=== PATIENT | male | born 1975 | race Caucasian/White ===

== ENCOUNTER 2018-08-10 22:55 | Inpatient (IN) ==
[2018-08-11 00:03] LABS: BASO# 0.05 X1000 (0.0-0.2); BASO% 0.8 % (0.0-0.8); EOS# 0.08 X1000 (0.0-0.7); EOS% 1.2 % (0.0-10.0); HEMATOCRIT 48.4 % (42.0-52.0); HEMOGLOBIN 16.7 g/dL (14.0-18.0); LYMPH# 1.44 X1000 (1.2-3.4); LYMPH% 21.9 % (20.5-51.1); MCH 29.1 PG (27-31); MCHC 34.5 g/dL (33-37); MCV 84.5 FL (81-99); MONO# 0.52 X1000 (0.11-0.59); MONO% 7.9 % (1.7-9.3); MPV 11.1 FL (7.4-10.4); NEUT# 4.49 X1000 (1.4-6.5); NEUT% 68.2 % (42.2-75.2); PLT 245 X1000 (130-400); RBC 5.73 XMIL (4.7-6.1); RDW 12.7 % (11.5-14.5); WBC 6.58 X1000 (4.8-10.8)
[2018-08-11 00:22] LABS: AGAP 18; ALB/GLOB RATIO 1.7; ALBUMIN 4.8 g/dL (3.5-5.0); ALKALINE PHOSPHATASE 94 U/L (32-122); BUN 19 mg/dL (8-22); CALCIUM 9.5 mg/dL (8.8-10.2); CHLORIDE 105 mmol/L (98-107); COSMO 280; CREATININE 1.3 mg/dL (0.7-1.2); ESTIMATED GFR > 60; GLUCOSE 108 mg/dL (70-104); GOT 13 U/L (10-34); GPT 14 U/L (10-44); POTASSIUM 4.3 mmol/L (3.5-5.1); SODIUM 139 mmol/L (136-145); TCO2 16 mmol/L (25-35); TOTAL BILIRUBIN 1.08 mg/dL (0.20-1.00); TOTAL PROTEIN 7.7 g/dL (6.3-8.3)
--- NOTE | 2018-08-11 00:42 | PROVIDER DOCUMENTATION ---
This chart was entered by Tatyana Linn Scribe, acting as scribe for Vahe Jones MD. HPI-Chest Pain - General Chief Complaint: Chest Pain Stated Complaint: cp Time Seen by Provider: 08/10/18 23:13 Source: patient Allergies/Adverse Reactions: Patient Allergies Allergy/AdvReac Type Severity Reaction Status Date / Time No Known Allergies Allergy Verified 01/26/16 16:11 Home Medications: Home Medication List Medication Instructions Recorded Confirmed Last Taken Type Amoxicillin 500 mg PO TID #30 capsule 01/26/16 Unknown Rx Chlorhexidine Gluconate [Peridex] 473 ml MM BID #1 bottle 01/26/16 Unknown Rx Ibuprofen 800 mg PO TID #20 tablet 01/26/16 Unknown Rx Hydrocodone/Acetaminophen [Bellona 1 ea PO Q4-6H PRN PRN #10 tab 07/01/17 Unknown Rx 10-325 Tablet] Tamsulosin [Flomax] 0.4 mg PO DAILY #7 cap 07/01/17 Unknown Rx - History of Present Illness-CP Nature of Presenting Problem: 42 yom c/o cp w/nausea and sweating starting this afternoon. pt's took him to ems to be evaluated and [facility] brought him to er. pt has had previous neck sx and has neck probs so pt reports filing for disability soon. pt states pain radiates into both arms. pt is cold a clammy to touch. pt has hx of htn but no other medical problems. pt family hx father had 3xbypass at 55. pt denies drug use. Review of Systems - Adult - REVIEW OF SYSTEMS - ADULT Constitutional: reports: no symptoms reported, other (cold and clammy to touch). denies: chills, fever, fatique Eyes: reports: no symptoms reported Ears, Nose, Mouth & Throat: reports: no symptoms reported Cardiovascular: reports: see HPI, chest pain. denies: orthopnea, palpitations, syncope Respiratory: reports: no symptoms reported Gastrointestinal: reports: no symptoms reported Genitourinary: reports: no symptoms reported Musculoskeletal: reports: no symptoms reported Integumentary: reports: no symptoms reported Neurological: reports: no symptoms reported Psychiatric: reports: no symptoms reported Endocrine: reports: see HPI, excessive sweating Hematologic/Lymphatic: reports: no symptoms reported Allergic/Immunologic: reports: no symptoms reported All Other Systems: Reviewed and Negative Past History - Adult - PAST MEDICAL HISTORY-ADULT Review of Records: reports: Old Records Reviewed, Nursing Assessment Review, Medications Reviewed, Social history reviewed & non-contributory. Major Childhood Illnesses: reports: denies history Cardiovascular: reports: HTN Respiratory: reports: denies history Gastrointestinal: reports: GERD Obstetrical/Gynecological: reports: denies history Genitourinary: reports: kidney stones Musculoskeletal: reports: denies history Neurological: reports: denies history Endocrine/Immune: reports: denies history Other Conditions: reports: denies history - PRIOR SURGERIES/PROCEDURES Surgical/Procedure History: reports: back/neck (neck) - IMMUNIZATION STATUS Childhood Immunizations: See Nurse Assessment Flu Vaccine: See Nurse Assessment - FAMILY HISTORY Family History: reviewed, not pertinent - SOCIAL HISTORY Smoking: other (former) Substance Use: none/never Physical Exam-General - PHYSICAL EXAM-ADULT Initial Vital Signs Reviewed: Yes - CONSTITUTIONAL General Appearance: alert, mild distress, other (diaphoresis, cold, clammy). negative: slow to respond, obtunded, combative - EYES Eyes: PERRL/EOMI, pink conjunctivae - HEAD, EARS, NOSE, MOUTH & THROAT HENMT: normocephalic/atraumatic, moist mucous membranes, normal ENT inspection - NECK Neck: non-tender, full range of motion, supple, normal inspection - RESPIRATORY Respiratory: chest non-tender, lungs clear, normal breath sounds - CARDIOVASCULAR Cardiovascular: normal peripheral pulses, regular rate, rhythm, no edema. negative: extra beats, friction rub, irregularly irregular - GASTROINTESTINAL (ABDOMEN) Abdominal Exam: normal bowel sounds, non tender, soft - LYMPHATIC Lymphatic: no adenopathy - MUSCULOSKELETAL Back Exam: normal inspection, no CVA tenderness, no vertebral tenderness Extremity: normal range of motion, non-tender, normal inspection Peripheral Pulses: radial (R): 2+, radial (L): 2+ - SKIN Integumentary: normal color, normal turgor, diaphoresis. 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, grossly normal, no motor/sensory deficits - PSYCHIATRIC Psych/Mental Status: normal mood/affect, normal thought content, normal thought process, oriented x 3 Progress - PLAN OF CARE/RESULTS Progress/Plan/Lab Results: Vital Signs - 8 hr 08/10/18 23:13 08/10/18 23:14 08/10/18 23:20 Temperature 99.3 F Pulse Rate 70 71 66 Respiratory Rate 19 16 17 Blood Pressure 129/93 129/93 O2 Sat by Pulse Oximetry 99 99 08/10/18 23:22 08/10/18 23:30 08/10/18 23:40 Temperature Pulse Rate 63 62 55 L Respiratory Rate 16 16 11 L Blood Pressure 120/87 O2 Sat by Pulse Oximetry 99 99 100 08/10/18 23:50 08/11/18 00:00 08/11/18 00:10 Temperature Pulse Rate 60 62 61 Respiratory Rate 14 21 11 L Blood Pressure O2 Sat by Pulse Oximetry 99 98 98 08/11/18 00:20 Temperature Pulse Rate 61 Respiratory Rate 14 Blood Pressure O2 Sat by Pulse Oximetry 98 Laboratory Results - last 24 hr 08/10/18 08/10/18 08/10/18 23:30 23:30 23:30 WBC 6.58 RBC 5.73 Hgb 16.7 Hct 48.4 MCV 84.5 MCH 29.1 MCHC 34.5 RDW Std Deviation 12.7 Plt Count 245 MPV 11.1 H Immature Gran % (Auto) 0.0 Neut % (Auto) 68.2 Lymph % (Auto) 21.9 Mccone % (Auto) 7.9 Eos % (Auto) 1.2 Baso % (Auto) 0.8 Immature Gran # (Auto) 0.00 Neut # (Auto) 4.49 Lymph # (Auto) 1.44 Mccone # (Auto) 0.52 Eos # (Auto) 0.08 Baso # (Auto) 0.05 Sodium 139 Potassium 4.3 Chloride 105 Carbon Dioxide 16 L Anion Gap 18 BUN 19 Creatinine 1.3 H Estimated GFR/1.73 m2 > 60 BUN/Creatinine Ratio 15 Glucose 108 H Calculated Osmolality 280 Calcium 9.5 Total Bilirubin 1.08 H AST 13 ALT 14 Alkaline Phosphatase 94 Troponin T < 0.010 Total Protein 7.7 Albumin 4.8 Globulin 2.9 Albumin/Globulin Ratio 1.7 Orders Category Date Time Status CHEST-PORTABLE [RAD] Stat Exams 08/10/18 23:36 Taken CBC WITH ELECTRONIC DIFF [HEME] Stat Lab 08/10/18 23:30 Completed COMPREHENSIVE METABOLIC PANEL [CHEM] Stat Lab 08/10/18 23:30 Completed TROPONIN T Stat Lab 08/10/18 23:30 Completed EKG [EKG] Stat Ther 08/10/18 23:03 Ordered Result Diagrams: 08/10/18 23:30 08/10/18 23:30 - EKG 1 Time of EKG reading by physician:: 23:21 EKG Read and Signed by:: Vahe Jones EKG Interpretation (*Must complete 3 of following elements*): Normal Rate: 72 Rhythm: NSR w/ sinus arrhythmia [place]: normal ST Wave: non-specific ST changes (t waves flat) - XRAY 1 XRAY: Bilateral XRAY Study: Chest Impression: Abnormal (1.5 cm nodule noted in RML) - CONSULTS/PCP/HOSPITALIST Notification #1 *Consult/PCP/Hospitalist*: Dr Pro Consult Disposition: Admit Departure - Departure Date of Disposition Decision: 08/11/18 Time of Disposition Decision: 00:40 DIAGNOSIS: Chest pain Qualifiers: Chest pain type: chest pain due to myocardial ischemia Ischemic chest pain type: unspecified angina pectoris type Qualified Code(s): I25.9 - Chronic ischemic heart disease, unspecified Disposition: ADMITTED INPATIENT 09 Certified Medical Emergency: Emergent Condition: Stable Referrals and Follow-Ups: TOMAS AHMADI CRNP [Primary Care Provider] - - Critical Care Note This patient required my direct & personal management of CC.: Yes Total Time (mins): 30 Critical Care Statement: This patient required my direct personal management to treat or rule out processes, the absence of which, could potentiallly result in sudden, clinically significant life or limb threatening deterioration. Attestation - Physician/ MANUEL Attestation Patient care was provided by Advanced Practice Provider:: No The physician spent face to face time with patient:: Yes Advanced Practice Provider documentation review:: Supervising physician onsite and consulted in the evaluation and care of this patient. The physician did have a face to face encounter with the patient. This chart was documented by the indicated scribe, (Tatyana Linn Scribe) and accurately reflects the services I performed and decisions made by me, Vahe Jones MD, as attested by the provider's signature.
[2018-08-11] MEDS ORDERED: NITROGLYCERIN LINGUAL SPRAY SL PRN (06:57)
[2018-08-11] MEDS ORDERED: ZOFRAN IV PRN (06:57)
[2018-08-11] MEDS ORDERED: NS 1,000 ML IV SCH (07:00)
--- NOTE | 2018-08-11 07:48 | Diag Imaging Result Doc PS360 ---
EXAM: CHEST-PORTABLE INDICATION: cp TECHNIQUE: One view COMPARISON: 08/27/2015 FINDINGS: There is a stable granuloma at the periphery of the right mid to lower lung zone. The lungs are clear, otherwise. There is no discrete pleural fluid collection or pneumothorax. The cardiomediastinal silhouette and central vasculature are grossly unremarkable. IMPRESSION: No evidence of acute pathology by plain radiograph. Electronically signed by Angelo Linn 08/11/2018 7:46 AM
--- NOTE | 2018-08-11 08:01 | Diag Imaging Result Doc PS360 ---
EXAM: CT THORAX W/CONTRAST 08/11/2018 HISTORY: rml nodule 1.5 cm TECHNIQUE: This exam was performed using automated exposure control, adjustment of mA or kV according to patient size, and/or use of iterative reconstruction technique. COMMENT: There are no previous thoracic studies available for comparison. Where possible the study is compared with the previous abdominal study of 07/01/2017, and plain radiographs from 08/27/2015. There is a pleural-based densely calcified nodule in the right middle lobe on image 65. This portion of the chest was not included on the previous abdominal study however the nodule in question was visible on the plain radiograph in 2016. There is an additional nodule in the right middle lobe which is also calcified more inferiorly on image 87 which was present on the previous study. There is mild platelike atelectasis present in both lower lobes posteriorly particularly on the right. There is a tiny pleural-based nodule in the left lateral costophrenic sulcus which was present on the previous study. There is a tiny nodule in the lingula on image 60 which is in an area not included on the previous abdominal study. This is also likely a granuloma. There is no evidence of acute pulmonary parenchymal disease. There are benign appearing axillary nodes bilaterally. There are small mediastinal nodes. There are no abnormal fluid collections. The regional skeleton is intact. There has been fusion in the lower cervical spine. IMPRESSION: Granulomatous findings. Electronically signed by Nickolas Shaw 08/11/2018 7:59 AM
--- NOTE | 2018-08-11 08:07 | EKG Report ---
Test Performed on : 08/11/2018 07:47:30 AM Test Reason : chest pain Blood Pressure : / mmHG Vent. Rate : 047 BPM Atrial Rate : 047 BPM P-R Int : 150 ms QRS Dur : 090 ms QT Int : 442 ms P-R-T Axes : 030 045 022 degrees QTc Int : 391 ms Sinus bradycardia. Otherwise normal ECG When compared with ECG of 10-AUG-2018 23:09, (Unconfirmed) Vent. rate has decreased BY 25 BPM Unconfirmed Result
--- NOTE | 2018-08-11 08:07 | HISTORY AND PHYSICAL ---
PRIMARY CARE PROVIDER: Rosy Do in [place], [place] CHIEF COMPLAINT: Chest pain. HISTORY OF PRESENT ILLNESS: Mr. Babcock is a 42-year-old male who presented to the ER on 08/10/2018 at 2300 with complaints of chest pain. The patient reported that Saturday night, he went to sleep, felt fine. He slept all night, woke up that morning for a few hours, did not feel very well, had lied back down, and went to sleep and has slept all day Saturday as well. He states that on Saturday night, he woke up and had eaten a bite of food, had gotten in the shower, and as he was getting out of the shower at approximately 7 p.m. began to have a deep cramping type chest pain in his left chest which radiated across to his right chest. He also did have diaphoresis. He felt dizzy and lightheaded like he was going to pass out. He also reported that he had a couple episodes of vomiting with this as well. Though he denied any shortness of breath. The patient states that he does have a history of having a cervical fusion at C4, C5 and C6 and has had some complications postsurgery with this. He does frequently have some cramping type pain in his shoulders, arms, and chest. Though the patient states that the pain he was having in his chest was totally different from his usual pain and that he had never had the other symptoms like he did tonight along with it. He denies any headache, cough, abdominal pain or diarrhea. He denies any fevers, body aches or chills. He denies any dysuria or urinary frequency. He denies any swelling in extremities. Upon evaluation in the ER, the patient's EKG did show normal sinus rhythm with a sinus arrhythmia at a rate of 72 with a QTC of 405. There does not appear to be any ST elevation or depression. He does have inferior T waves, though this is only in AVR and V1. His troponins have been negative so far. The patient's chest x-ray did appear to have a nodule present in the right lung. Given this, they did perform a CT of chest with IV contrast which showed that there were some right-sided soft tissue lung nodules measuring 4 mm or smaller. There was a partly calcified nodule in the right middle lobe measuring 14 x 6 mm. This was noted to be partly calcified granuloma, less likely hamartoma. Though given the patient's chest pain, we will admit him for further treatment and evaluation of this. REVIEW OF SYSTEMS: A 14-point review of systems was conducted with the patient, and all were negative except for pertinent positives mentioned in the above HPI. PAST MEDICAL HISTORY: 1. Hypertension. 2. Gastroesophageal reflux disease. 3. Neuropathy. 4. History of kidney stones. 5. History of spinal meningitis at age 2 months old. 6. History of diverticulosis and diverticulitis. 7. History of ulcerative colitis. PAST SURGICAL HISTORY: The patient has had a cervical fusion at C4, C5 and C6. SOCIAL HISTORY: The patient is a former smoking. He quit smoking approximately 5 years ago, though he did smoke 1-1/2 to 2 packs per day for a period of 20 years. There is no known alcohol or illicit drug use. FAMILY HISTORY: The patient's father has a history of having an RI at age 55 which he did have to have a triple bypass. His mother has a history of arthritis. His sister has a history of diabetes mellitus and neuropathy and fibromyalgia. ALLERGIES: The patient has no known allergies. HOME MEDICATIONS: 1. Gabapentin 100 mg p.o. b.i.d. 2. Lisinopril 10 mg p.o. daily. DIAGNOSTIC DATA: White blood cell count is 6580, hemoglobin 16.7, hematocrit 48.4, platelet count 245. Sodium is 139, potassium 4.3, chloride 105, serum bicarb is 16, anion gap 18, BUN is 19, creatinine 1.3 with a GFR of greater than 60, glucose 108. Calcium 9.5. Liver function tests are within normal limits; however, his total bilirubin is slightly elevated at 1.08. Troponin is less than 0.01. Chest x-ray did show a nodule in the right lung. Followup CT with IV contrast showed no acute process, though there were right-sided soft tissue lung nodules measuring 4 mm or smaller. The radiologist noted that no followup was necessary. There was a partly calcified nodule in the right middle lobe measuring 14 x 13 mm, likely partly calcified granuloma. It was less likely a hamartoma. PHYSICAL EXAMINATION: VITAL SIGNS: Temperature 98.8, heart rate 63, respirations 16, blood pressure 121/77, oxygen saturation is 99% on room air. GENERAL: Mr. Babcock is a 42-year-old male. He was resting on the ER stretcher. He was in no acute distress. He was awake, alert and able to answer questions appropriately. HEENT: Head is atraumatic and normocephalic. Pupils are equal, round and reactive to light, were 3 mm bilaterally and brisk. Oral mucosa is moist. Oropharynx was clear. NECK: Supple. Trachea midline. CARDIOVASCULAR: The patient has normal S1 and S2. No murmurs, gallops or rubs appreciated, with a regular rate and rhythm. PULMONARY: The patient has symmetrical chest expansion bilaterally. Lung sounds are clear to auscultation in bilateral full sosa. ABDOMEN: Soft, nontender and nondistended. Bowel sounds are present in all 4 quadrants and were normoactive. EXTREMITIES: No cyanosis, clubbing or edema noted. Pulse, motor and sensory were intact in all extremities. Radial pulses and pedal pulses were 2+ bilaterally. INTEGUMENTARY: The patient's skin is pink, warm and dry. NEUROLOGICAL: The patient is alert and oriented to person, place, time and situation. There does not appear to be any focal neurological deficit noted. ASSESSMENT AND PLAN: 1. Chest pain. For further evaluation of this, we will continue with a series of cardiac enzymes. We have placed orders for echocardiogram as well as a myocardial perfusion scan. Stress test this morning. We have also ordered a lipid profile. He will receive aspirin 325 mg daily. We have ordered nitroglycerin p.r.n. for chest pain. We will do a repeat EKG in the morning as well. He will be n.p.o. for his diagnostic studies this morning. We have placed a Cardiology consult with Dr. Bro and will await their evaluation and further recommendations for management. 2. Hypertension. We will continue his lisinopril. 3. Gastroesophageal reflux disease. We have placed orders for omeprazole. 4. Deep venous thrombosis prophylaxis will be provided with SCDs. The patient has been placed on the Medical Floor with telemetry. We will do vital signs q.6 hours, do strict intake and output. He will be n.p.o. Further orders and recommendations pending hospital course, diagnostic studies and physician evaluation. Dictated by CRYSTAL Torres for Ari Szymanski MD cc: Ari Szymanski MD
[2018-08-11] MEDS ORDERED: ASPIRIN PO SCH (09:00)
--- NOTE | 2018-08-11 09:03 | EKG Report ---
Test Performed on : 08/10/2018 11:09:51 PM Test Reason : CP Blood Pressure : / mmHG Vent. Rate : 072 BPM Atrial Rate : 072 BPM P-R Int : 148 ms QRS Dur : 088 ms QT Int : 370 ms P-R-T Axes : 070 059 036 degrees QTc Int : 405 ms Normal sinus rhythm. with sinus arrhythmia. Normal ECG When compared with ECG of 19-MAY-2012 05:24, Vent. rate has increased BY 24 BPM Unconfirmed Result
[2018-08-11] MEDS: PRINIVIL PO SCH (10:08)
[2018-08-11] MEDS: PRILOSEC PO SCH (10:09)
[2018-08-11 11:15] LABS: AGAP 13; BUN 18 mg/dL (8-22); CALCIUM 9.3 mg/dL (8.8-10.2); CHLORIDE 105 mmol/L (98-107); COSMO 287; CREATININE 1.3 mg/dL (0.7-1.2); ESTIMATED GFR > 60; GLUCOSE 99 mg/dL (70-104); POTASSIUM 3.9 mmol/L (3.5-5.1); SODIUM 143 mmol/L (136-145); TCO2 25 mmol/L (25-35)
--- NOTE | 2018-08-11 12:30 | CONSULTATION ---
DATE OF CONSULTATION: 08/11/2018 IMPRESSION: 1. Atypical chest pain. Serial troponins normal and ECG benign. 2. Chronic cervical radiculopathy with history of previous cervical spine injury and previous cervical spine fusion, C4 thru C6. 3. Hypertension. 4. Family history of coronary disease. RECOMMENDATIONS: Agree with plans to pursue Lexiscan sestamibi study. HISTORY: This 42-year-old white male with past history of hypertension, cervical radiculopathy, family history of early coronary artery disease was admitted to the emergency room for evaluation of chest pain. He relates having some malaise yesterday. He has pretty much slept a good part of the day. Yesterday evening he got up to take a hot shower. See if this would help him feel better. Just as he got out of the shower he started having some left anterior sharp/stabbing discomfort which was nonpleuritic and lasted perhaps 20 minutes. Discomfort is not positional. He had some diaphoresis with this. He subsequently had some nausea and emesis. Discomfort was different from what he has experienced in the past with respect to his cervical radiculopathy and prompted him to come to the emergency room for evaluation. He has not had any recurrence. PAST MEDICAL HISTORY: 1. Cervical radiculopathy with history of previous cervical spine injury and cervical spine fusion C4 through C6. 2. Hypertension. 3. Diverticular disease of the colon. 4. Nephrolithiasis. ALLERGIES: No known drug allergies. MEDICATIONS PRIOR TO ADMISSION: As listed. SOCIAL HISTORY: He is . He has history of smoking 1-1/2 to 2 packs of cigarettes per day for approximately 20 years and quit 5 years ago. 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 He fell while working at the [employer] and injured his neck. FAMILY HISTORY: Positive for coronary artery disease. REVIEW OF SYSTEMS: Constitutional: Negative beyond history of present illness. Pulmonary: Noteworthy for minimal cough. There has been no sputum production. Gastrointestinal: Negative beyond history of present illness. Remainder of review of systems negative/noncontributory beyond history of present illness with 14 total systems reviewed. PHYSICAL EXAMINATION: General: A pleasant adult white male in no distress. Vital signs: Blood pressure 123/82, heart rate 58. HEENT: Extraocular movements appear intact. Mucous membranes are moist. Neck: Supple without jugular venous distention. There are no carotid bruits. Chest: Clear to auscultation bilaterally. Cardiac: Reveals a regular rate and rhythm without appreciable murmur or gallop. Abdomen: Soft. Bowel sounds are normal. Extremities: Without edema. Neurologic: Reveals him to be alert and fully oriented. Speech is fluent. Moves all 4 extremities equally well. Skin: Warm and dry. Psychiatric: Reveals mood to be appropriate. 12- lead EKG demonstrates sinus bradycardia, but is otherwise within normal limits. LABORATORY DATA: Includes sodium 139, potassium 4.3, chloride 105, carbon dioxide 16, BUN 19, creatinine 1.3, glucose 108. Troponin T initially less than 0.01. Follow-up troponin T less than 0.01 x2 more values. White blood cell count 6.58, hematocrit 48.4, hemoglobin 16.7, platelet count 245,000. IMAGING: Chest x-ray indicates no acute disease. cc: Cassius Bauer MD
--- NOTE | 2018-08-11 16:14 | ECHO REPORT ---
ORDER DATE: 08/11/2018 INDICATION: Chest pain, hypertension. PROCEDURE PERFORMED: Echocardiogram. FINDINGS: 1. The right atrium appears normal in size at 3.7 cm. 2. Mild tricuspid regurgitation. Insufficient data to estimate RV systolic pressure. 3. Normal RV size and systolic function. 4. Trace pulmonic insufficiency. 5. Normal left atrial size at 3.2 cm. 6. No mitral valve prolapse. Trace mitral regurgitation. 7. Normal LV size, end-diastolic dimension of 4.3. Normal wall thicknesses with a posterior and interventricular septal wall thickness 1.1 cm each. Normal LV systolic function. The estimated EF is normal at 65%. 8. The aortic valve opens well. It is trileaflet. No evidence of stenosis or insufficiency. 9. The aorta appears normal in visualized segments. 10. No pericardial effusion seen. cc: MD Ari Eden MD
[2018-08-12 07:56] LABS: HEMATOCRIT 44.3 % (42.0-52.0); HEMOGLOBIN 15.1 g/dL (14.0-18.0); MCH 29.8 PG (27-31); MCHC 34.1 g/dL (33-37); MCV 87.4 FL (81-99); MPV 10.5 FL (7.4-10.4); RBC 5.07 XMIL (4.7-6.1); WBC 5.37 X1000 (4.8-10.8)
[2018-08-12 08:21] LABS: AGAP 12; BUN 16 mg/dL (8-22); CALCIUM 8.8 mg/dL (8.8-10.2); CHLORIDE 104 mmol/L (98-107); COSMO 280; CREATININE 1.1 mg/dL (0.7-1.2); ESTIMATED GFR > 60; GLUCOSE 96 mg/dL (70-104); SODIUM 140 mmol/L (136-145); TCO2 24 mmol/L (25-35)
[2018-08-12] MEDS: PRILOSEC PO SCH (08:57)
[2018-08-12] MEDS: PRINIVIL PO SCH (08:58)
[2018-08-12] MEDS: ASPIRIN PO SCH (08:58)
[2018-08-12 11:59] LABS: FREE T4 1.35 ng/dL (0.93-1.70); TSH 2.86 uIUmL (0.27-4.20)
--- NOTE | 2018-08-12 13:03 | Diag Imaging Result Document ---
PROCEDURE NAME: MYOCARDIAL PERF SCAN, STR/REST - 08/11/2018 EXERCISE SESTAMIBI: SUMMARY: The patient was administered 14.0 mCi of technetium-99m sestamibi, after which resting cardiac images were obtained. The patient was subsequently exercised on a treadmill, according to a Hieu protocol and exercised for a total of 7 minutes and 5 seconds, achieving a maximum workload of stage III and 8.6 METS. With exercise, the heart increased from 64 beats per minute to 176 beats per minute representing 98% of maximal age-predicted heart rate. The blood pressure increased from 131/83 to 179/118 with exercise. With exercise, the patient denied chest discomfort. Baseline ECG demonstrated sinus rhythm. After approximately 4-1/2 minutes of exercise, the patient began to manifest ST-segment depression in the inferior and lateral precordial leads and at peak exercise, the patient demonstrated approximately 1.[address]-segment depression, which was horizontal in nature in the inferior and lateral precordial leads, which returned to baseline in early recovery. SPECT images were reconstructed in the short, horizontal long, and vertical long axis. Review of cine planar images demonstrates increased gut uptake of radiopharmaceutical on resting images influencing imaging of the inferior wall. Review of SPECT images demonstrates mildly diminished activity in the basal inferior wall on stress images, which equivocally improves on resting images. Gated images demonstrate a calculated left ventricular ejection fraction of 70% with symmetrical wall motion/thickening. CONCLUSIONS: 1. Fair aerobic capacity. Target heart rate achieved. 2. Clinically negative for chest pain. 3. Electrocardiographically positive for exercise-induced myocardial ischemia. 4. Exercise sestamibi images somewhat technically difficult due to increased gut uptake of radiopharmaceutical on rest images. Equivocal evidence of inducible myocardial ischemia in the basal inferior wall demonstrated. Normal left ventricular systolic function demonstrated. Clinical correlation recommended. cc: MD Ari Matthews MD
--- NOTE | 2018-08-12 14:17 | PROGRESS NOTE ---
DATE: 08/12/2018 SUBJECTIVE: Denies any chest pains or any continued complaints of what he experienced at home. He does state that during his treadmill stress test yesterday he did feel short of breath but denied chest pain at that time as well. No other complaints. OBJECTIVE: VITAL SIGNS: Temperature is 99.1, heart rate 53, respiratory rate 18, blood pressure 112/68, O2 saturation 98% on room air. GENERAL: Mr. Kelvin Babcock is a 42-year-old male. He is in no acute distress. He is able to answer questions appropriately. PULMONARY: Clear to auscultation, bilateral breath sounds. No accessory muscle use or work of breathing noted. CARDIOVASCULAR: S1, S2, bradycardic rate and rhythm, no rubs, gallops, or murmurs. No lower extremity edema, +2 dorsalis and radial pulses. Negative JVD or carotid bruits. GASTROINTESTINAL: Soft, nontender, nondistended, positive bowel sounds x4. EXTREMITIES: Moves all extremities equally, full range of motion. NEUROLOGIC: A and O x3, follows commands. Sensory is intact. SKIN: Warm, dry, intact. LABORATORY DATA: White blood cell 5000, hemoglobin 15, hematocrit 44, platelet count 216. Sodium 140, potassium 4.0, BUN 16, creatinine is 1.1, glucose 96, calcium 8.8. TSH 2.86, free T4 is 1.35. IMAGING: Yesterday had a myocardial perfusion scan with results of negative for chest pain, positive for exercise-induced myocardial ischemia. There is equivocal evidence of induced simple myocardial ischemia in the basal inferior wall demonstrated. Normal left ventricular systolic function. EKG: Sinus bradycardia, rate 47, QTc 391. ASSESSMENT AND PLAN: 1. Atypical chest pain now with positive exercise-induced myocardial ischemia. Plans for left heart catheterization for in the morning. Serial cardiac enzymes were negative. Lipid profile essentially was normal. The HDL was a little low and the patient was educated on foods that could improve HDL. 2. Hypertension on lisinopril. 3. Gastroesophageal reflux disease. Continue omeprazole. 4. Deep venous thrombosis prophylaxis, sequential compression devices. Dictated by CRYSTAL Bravo for Ari Szymanski MD Addendum: Patient seen and examined by myself. Agree with CRYSTAL note. It reflects my assessment and plan. cc: CRYSTAL Bravo MD [facility]
--- NOTE | 2018-08-12 18:25 | PROGRESS NOTE ---
DATE: 08/12/2018 SUBJECTIVE: Patient continues without further chest discomfort. He denies shortness of breath. While on the treadmill at peak exercise, he relates some discomfort in the left jaw and left side of his face but no chest discomfort. OBJECTIVE: Blood pressure 118/78, heart rate 65 and regular, oxygen saturation 97% on room air. There is no significant jugular venous distention.Chest: Clear to auscultation. Cardiac Exam: Reveals a regular rate and rhythm without appreciable murmur or gallop. Extremities: Without edema. LABORATORY DATA: Includes initial troponin T less than 0.01, followup troponin T less 0.01. Sodium 140, potassium 4.0, chloride 104, carbon dioxide 24, BUN 16, creatinine 1.1, glucose 96. TSH 2.86. LDL cholesterol 136, total cholesterol 181, triglycerides 96, VLDL 19, HDL cholesterol 53. Exercise myocardial perfusion study negative for chest pain. Patient had positive ECG response for exercise-induced myocardial ischemia. Exercise sestamibi images somewhat technically difficult and demonstrated equivocal evidence of inducible myocardial ischemia in the basal inferior wall. Normal left ventricular ejection fraction demonstrated. IMPRESSION: 1. Recent chest discomfort predominantly atypical for myocardial ischemia. 2. Abnormal exercise myocardial perfusion study. Exercise ECG suggests exercise-induced myocardial ischemia while stress myocardial perfusion images demonstrated equivocal evidence of inducible myocardial ischemia the basal inferior wall. 3. Hypertension. 4. Hyperlipidemia. 5. Chronic cervical radiculopathy with history of previous cervical spine injury and previous cervical spine fusion C4 through C6. 6. Family history of early coronary disease. RECOMMENDATIONS: 1. Favor definitive evaluation of patient's clinical presentation and abnormal stress test with cardiac catheterization and selective coronary angiography. The rationale for this approach along with potential hazards were discussed with the patient. He wished to proceed. 2. Initiate statin therapy with Lipitor. cc: Cassius Bauer MD
[2018-08-12] MEDS ORDERED: LIPITOR PO SCH (21:00)
[2018-08-12] MEDS: NORCO-5 PO PRN (21:11)
[2018-08-13] MEDS: PRINIVIL PO SCH ×2 (05:02→08:45)
[2018-08-13 07:07] LABS: HEMATOCRIT 43.8 % (42.0-52.0); HEMOGLOBIN 15.1 g/dL (14.0-18.0); MCH 29.9 PG (27-31); MCHC 34.5 g/dL (33-37); MCV 86.7 FL (81-99); RBC 5.05 XMIL (4.7-6.1); RDW 12.9 % (11.5-14.5); WBC 6.07 X1000 (4.8-10.8)
[2018-08-13 07:33] LABS: AGAP 13; BUN 17 mg/dL (8-22); CALCIUM 9.3 mg/dL (8.8-10.2); CHLORIDE 105 mmol/L (98-107); COSMO 285; ESTIMATED GFR > 60; GLUCOSE 102 mg/dL (70-104); SODIUM 142 mmol/L (136-145); TCO2 24 mmol/L (25-35)
[2018-08-13 07:56] LABS: INR 1.04; PROTIME 14.4 Seconds (11.0-16.0)
[2018-08-13] MEDS: NORCO-5 PO PRN ×2 (08:44→15:19)
[2018-08-13] MEDS: ASPIRIN PO SCH (08:45)
[2018-08-13] MEDS: PRILOSEC PO SCH (08:45)
[2018-08-13] MEDS ORDERED: DEMEROL ONE ×2 (13:40→14:06)
[2018-08-13] MEDS ORDERED: VERSED ONE (13:40)
[2018-08-13] MEDS ORDERED: NS 1,000 ML ONE (13:41)
[2018-08-13] MEDS ORDERED: CLAVE TWINSITE 32 IN 11959 ONE (13:41)
[2018-08-13] MEDS ORDERED: ANESTHESIA PB SET 88 IN 5742 ONE (13:41)
--- NOTE | 2018-08-13 15:49 | CARDIAC CATH REPORT ---
DATE: 08/13/2018 PROCEDURES PERFORMED: 1. Left heart catheterization. 2. Selective bilateral coronary arteriography. 3. Left ventriculography. 4. Selective opacification of left femoral artery with deployment of a 6 Bangladeshi Angio-Seal device. HISTORY: A 42-year-old male patient of Dr. Bauer who underwent stress testing for evaluation of chest pain and this study showed significant ST abnormality in the anterolateral and inferolateral leads suggesting diffuse subendocardial ischemia. Dr. Bauer recommended heart catheterization for confirmation of the presence of coronary heart disease. The benefits, risks, and complications were discussed. The patient understood and requested to proceed. DESCRIPTION OF PROCEDURE: The patient came into the [facility] in the fasting state. The right groin was prepped and draped in sterile fashion and anesthetized with lidocaine 1%. A 6 Bangladeshi sheath was inserted into the right femoral artery following a modified Seldinger technique. Using a 6 Bangladeshi left Debbie 4 and right Debbie 4 catheter, the left and right coronary artery was sequentially opacified in multiple projections. The left ventricle was opacified with a right Debbie catheter. At conclusion of the procedure all the catheters were removed and the sheath was flushed. The right femoral artery was opacified and the Angio-Seal device was deployed good hemostasis. The patient tolerated the procedure well without complication. SUMMARY OF HEMODYNAMIC FINDINGS: Central aortic pressure was 94/67. Left ventricular pressure was 94/4. Post LV gram is about the same. Final central aortic pressure was 98/63. This indicates normal hemodynamics. SUMMARY OF ANGIOGRAPHIC FINDINGS: 1. Left main coronary artery: This vessel is very short and divides very early on into the LAD and circumflex. 2. Left anterior descending coronary artery: This vessel appears to be anatomically normal. It gives rise to 2 medium size diagonal branches. The LAD distally appears to be normal. It wraps around the apex of the left ventricle. 3. Circumflex: The circumflex is a nondominant system. The circumflex gives rise to a tiny lateral branch that gives rise to a good size obtuse marginal vessel and the terminal posterior lateral branch. The circumflex system is normal. 4. Right coronary artery: The right coronary artery is a small dominant vessel. It gives rise to the conus branch and sinus salome branch. The vessel gives rise to good marginal branches and distally a posterior descending branch. The right coronary artery is anatomically normal. LEFT VENTRICULOGRAM: Left ventriculogram in the 60 degree LEELEE projection and 30 degree NÚÑEZ projection reveals hyperdynamic left ventricle with ejection fraction of 70% to 75%. No mitral regurgitation is noted. OPACIFICATION OF RIGHT FEMORAL ARTERY: The right femoral artery is unremarkable. Angio-Seal device was deployed successfully. SUMMARY: In summary, this study shows: 1. Normal epicardial coronary arteries. 2. Hyperdynamic left ventricle. 3. Normal LVEDP. 4. No mitral regurgitation and no aortic stenosis. 5. Unremarkable right femoral artery. Successful deployment of Angio-Seal device. RECOMMENDATIONS: The patient may be discharged later on today assuming that his groin and right femoral access site is stable. He will follow up with his primary medical doctor. cc: MD Cassius Reynaga MD
--- NOTE | 2018-08-13 15:57 | EKG Report ---
Test Performed on : 08/13/2018 2:59:57 PM Test Reason : post cath Blood Pressure : / mmHG Vent. Rate : 054 BPM Atrial Rate : 054 BPM P-R Int : 146 ms QRS Dur : 096 ms QT Int : 436 ms P-R-T Axes : 056 045 027 degrees QTc Int : 413 ms Sinus bradycardia. Otherwise normal ECG When compared with ECG of 11-AUG-2018 07:47, No significant change was found Unconfirmed Result
[2018-08-13] MEDS ORDERED: FLU VACCINE IM ONE (20:08)
[2018-08-13 20:13] VITALS: BP 105/62
--- NOTE | 2018-08-14 00:18 | DISCHARGE SUMMARY ---
ADMISSION DATE: 08/11/2018 DISCHARGE DATE: 08/13/2018 ADMISSION DIAGNOSES: 1. Chest pain. 2. Hypertension. 3. Gastroesophageal reflux disease. DISCHARGE DIAGNOSES: 1. Atypical chest pain, now with positive exercise-induced myocardial is, now status post left heart catheterization that was clear that was performed this morning. 2. Hypertension, on lisinopril and stable. 3. Gastroesophageal reflux disease, continue Prilosec. CONSULTATIONS: Dr. Bauer with cardiology. PROCEDURES OR SURGERIES: 1. Myocardial perfusion scan negative for chest pain, positive for exercise- induced myocardial ischemia, equivocal evidence of inducible myocardial ischemia in the basal inferior wall, normal LV function. 2. Left heart catheterization was reported as normal. There is not an official report dictated yet. HOSPITAL COURSE: Mr. Kelvin Babcock is a 42-year-old male who presented on 08/10/2018 at 23:00 with complaints of chest pain. Did not feel good that morning, laid back down and slept all day on Saturday. Saturday night he woke up, ate, got in the shower and as he was getting out of the shower around 7 p.m. he started having deep cramping type chest pains in the left chest that radiated across the right chest with some diaphoresis, dizziness, lightheadedness and feeling like he was going to pass out. There are also reported episodes of vomiting. Cardiac workup revealed negative cardiac enzymes. He had a myocardial perfusion scan which revealed some ischemia on the treadmill stress test that was exercise induced in the basal inferior wall. He had a left heart catheterization that was reported as normal without an official report yet. Was deemed appropriate for discharge home. No chest pain throughout his whole stay. DISCHARGE VITAL SIGNS: Temperature 97.8, heart rate 62, respiratory rate 19, blood pressure 154/94, O2 saturation 100% on room air. DISCHARGE LABORATORY DATA: White blood cell 6000. Hemoglobin 15. Hematocrit 43. Platelet count 204. INR is 1.04. Sodium 142. Potassium 4.0. BUN 17. Creatinine is 1.0. Glucose 102. Calcium 9.3. Magnesium 1.9. Cholesterol normal except for a low HDL. Thyroid studies normal. PERTINENT IMAGIN. 08/10/2018 chest x-ray negative. 2. 08/11/[address]: Granulomatous finding. 3. 08/11/2018 echocardiogram: Trace pulmonary insufficiency, trace tricuspid regurgitation, trace mitral regurgitation, normal LV with EF of 65%, no effusion. DISCHARGE MEDICATIONS: 1. Neurontin 100 mg p.o. twice daily. 2. Lisinopril 10 mg p.o. daily. FOLLOWUP: His primary care provider, Rosy Brantley, and Dr. Cassius Bauer. DISCHARGE INSTRUCTIONS: Monitor left heart catheterization introducer site for any signs of swelling or bleeding. Do not lift, push, pull anything over 5 pounds. If chest pains return, please seek medical attention immediately. DISCHARGE ACTIVITY: As tolerated. DISCHARGE DIET: Regular. DISCHARGE DISPOSITION: Home after 8:30 today. Dictated by CRYSTAL Bravo for Ari Szymanski MD Addendum: Patient seen and examined by myself. Agree with CRYSTAL note. It reflects my assessment and plan. Patient is being discharged in stable condition to home. Will be seen by primary care doctor in a week. cc: CRYSTAL Bravo MD [facility]
== END 2018-08-13 20:50 | disposition home or self-care (01) | DRG 287 ==
LOC: SUPCPDRO → ED 22:55 → EDIPHOLD 08-11 04:45 → SUATTDRO 08-11 04:45 → 3N 08-11 06:37 → 3S 08-13 13:27
PROVIDERS: ATTEND Internal Medicine
CPT/HCPCS: 71010; 71045; 71260; 78452; 80048; 80053; 80061; 82550; 83721; 83735; 84439; 84443; 84484; 85025; 85027; 85610; 93005; 93010; 93017; 93306; 93458; 99285; 99291; A9270; A9500; C1760; J2175; J2250; J7030; Q9967